=== PATIENT | male | born 1935 | race Caucasian/White ===

== ENCOUNTER → 2017-07-04 | Outpatient (CLI) | payer OTHER ==
[~2017-07-04] VITALS: Ht 177.8 cm; Wt 90.7 kg
[~2017-07-04] MED LIST: ACCUNEB SO1.25 MG/1 INH; ASPIR 8181 MG PO; COZAAR 50 MG TA50 M2 PO; FLONASE 0.05%50 MCG NASAL; FOCUS FACTOR PO; LIPITOR10 MG PO; NASACORT10.8 ML NS; NORVASC5 MG PO; OMEGA-31000 M1 PO; ONDANSETRON HCL4 M2 PO; PENTASA500 MG PO; PRILOSEC 10MG C10 MG PO
--- NOTE | ~2017-07-04 | S ---
[facility] [place] [address] SURGICAL PATH RPT PROCEDURE Name: JAMESON MICHAEL Room #: REG CLAyden Dai#: [id number] Admission: 07/04/17 Date of : 39 Discharge: Report #: [id number] Path Case #: [id number] PATHOLOGY REPORT COLLECTION DATE: 07/04/2017 RECEIVED DATE: 07/04/2017 SUBMITTING PHYS: Dr. Elkin Yancey OTHER PHYS: Dr. Steph Johnson SPECIMEN(S) RECEIVED: A.Duodenum B.Ascending colon polyp C.Transverse colon polyp D.Rectal polyps x2 * * * * * * * * * * * * FINAL DIAGNOSIS: A. Small bowel mucosa, duodenum rule out sprue, endoscopic biopsy: - No diagnostic abnormalities present. B. Polyp, ascending colon, endoscopic biopsy: - Tubular adenoma. - Negative for high grade dysplasia. C. Polyp, transverse colon, endoscopic biopsy: - Tubular adenoma. - Negative for high grade dysplasia. D. 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 - One fragment showing hyperplastic polyp without dysplasia. (IUV:song; 07/05/2017) PATHOLOGIST: Nanette Stone M.D. REPORT ELECTRONICALLY SIGNED BY: Nanette Stone M.D. DATE/TIME: 07/05/2017 14:56 * * * * * * * * * * * * GROSS PATHOLOGY: A. Received in formalin labeled "Jameson Kroenke, BX duodenum r/o sprue," are 2 segments of burger soft tissue measuring 0.8 x 0.3 x 0.4 cm in aggregate dimensions and ranging from 0.4 to 0.4 cm in maximum dimension. The specimen is submitted entirely in cassette A1. B. Received in formalin labeled "Jameson Michael, polyp at ascending colon," are 3 segments of burger soft tissue measuring 0.8 x 0.6 x 0.3 cm in aggregate dimensions and ranging from 0.2 to 0.4 cm in maximum dimension. The specimen is submitted entirely in cassette B1. C. Received in formalin labeled "Jameson Michael, polyp at [address] [address] SURGICAL PATH RPT PROCEDURE Name: JAMESON MICHAEL [facility] [id number] Admission: 07/04/17 Date of : 39 Discharge: Report #: [id number] Path Case #: [id number] colon," is a segment of burger soft tissue measuring 0.4 cm in maximum dimension. The specimen is submitted entirely in cassette C1. D. Received in formalin labeled "Jameson Michael, polyp at rectum 2," are multiple (more than 10) segments of burger soft tissue measuring 2.2 x 0.9 x 0.4 cm in aggregate dimensions and ranging from 0.1 to 0.5 cm in maximum dimension. The specimen is submitted entirely in cassette D1. (TSD; 07/04/2017) CLINICAL HISTORY: Pre-OP DX: Anemia, Hx Crohn's, Hx HEM positive stool Post-OP DX: Colon polyps, diverticulosis INITIAL CPT CODE(S): A; 11865 B; 79365 C; 37067 D; 46388 Professional services performed by [facility] at [facility] [address], [place] [address] Technical services performed by [facility] at [address] [place] [address], [address], [place] [address]. [facility] [address] [place] [address] PHONE: [phone] DIRECTOR: Rogelio Suarez M.D. * * * END OF REPORT * * *
--- NOTE | ~2017-07-04 | P ---
[facility] [place] [address] PROCEDURE REPORT Name: AMELIA MICHAEL Room #: REG [facility]#: [id number] Admission: 07/04/17 Attend Phys: Elkin Herrera Discharge: Date of : 37 Report #: [id number] THIS REPORT FOR: //name// CC: Elkin Johnson MD DATE OF SERVICE: 07/04/2017 PROCEDURE PERFORMED: Upper endoscopy with biopsies. HISTORY OF PRESENT ILLNESS: The patient is a 81-year-old male with a history of Crohn's disease involving the small-bowel identified on M2 capsule 2 years ago. He is on Pentasa on a regular basis. He does take an aspirin on a daily basis as well. Recently, he was evaluated by his primary physician and noted to have a Hemoccult positive stool. He denies any melena or bright red blood per rectum. He denies any symptoms at this time. He does take Prilosec on a daily basis for reflux. Plan is for EGD and colonoscopy today. The patient has been reportedly mildly anemic recently. PROCEDURE: The risks and benefits of the procedure were explained to the patient, those risks including, but not limited to bleeding, perforation, the risk of sedation. He understood these risks and gave informed consent. Sedation was given using propofol and ketamine per anesthesia. Next, using a standard Spinal Integrationinon upper endoscope, the scope was placed in the patient's mouth and advanced under direct vision through the esophagus, stomach and into the second portion of the duodenum. The esophagus was normal throughout. The GE junction was normal. Upon entering the stomach, a small hiatal hernia was noted. Overall, the gastric mucosa was normal. The pylorus was normal and patent. The duodenal bulb, first and second portion were all normal. Biopsies of the duodenum were obtained to rule out the possibility of celiac sprue. The scope was then withdrawn and the procedure terminated. The patient tolerated the procedure well. IMPRESSION: 1. Small hiatal hernia. 2. Otherwise, normal upper endoscopy. RECOMMENDATIONS: 1. Await biopsy results. 2. Continue PPI therapy. 3. We will proceed with colonoscopy next today. [facility] [address] [place] [address] PROCEDURE REPORT Name: AMELIA MICHAEL [facility]: [facility] [id number] Admission: 07/04/17 Attend Phys: Elkin Herrera Discharge: Date of : 37 Report #: [id number] Thank you for allowing me to participate in his care. By: [id number] Elkin Yancey MD /nt
--- NOTE | ~2017-07-04 | P ---
[facility] [place] [address] PROCEDURE REPORT Name: AMELIA MICHAEL Room #: REG [facility]#: [id number] Admission: 07/04/17 Attend Phys: Elkin Herrera Discharge: Date of : 37 Report #: [id number] THIS REPORT FOR: //name// CC: Elkin Johnson MD DATE OF SERVICE: 07/04/2017 PROCEDURE PERFORMED: Colonoscopy with polypectomies. HISTORY OF PRESENT ILLNESS: The patient is a 81-year-old male with a recent Hemoccult positive stool. He denies any obvious bright red blood per rectum or melena. He does have a history of Crohn's disease involving the small-bowel, previous history of colon polyps. Plan is for colonoscopy. PROCEDURE: The risks and benefits of the procedure were explained to the patient, those risks including, but not limited to bleeding, perforation, and the risk of sedation. He understood these risks and gave informed consent. Sedation was given using propofol per anesthesia. Next, a digital rectal exam was initially performed, which showed external hemorrhoids, otherwise normal. Next, using a standard Clerkinon colonoscope, the scope was placed in the patient's anus and advanced under direct vision to the cecum. The overall prep was excellent. The cecum and ileocecal valve were normal in appearance. In the ascending colon, there was a 4-mm sessile polyp, this was removed with cold forceps, otherwise normal. In the transverse colon, a 3-mm sessile polyp also removed with cold forceps. Descending colon was normal. Multiple diverticula were noted in the sigmoid colon, no evidence of bleeding. In the rectum, there were 2 polyps, smaller was 3 mm and removed with cold forceps, the larger was 6 mm and removed by snare cautery. On retroflexion, small nonbleeding internal hemorrhoids were noted. The scope was then withdrawn and the procedure terminated. The patient tolerated the procedure well. IMPRESSION: 1. Four colonic polyps. 2. Sigmoid diverticulosis. 3. Internal and external hemorrhoids. 4. Otherwise, normal colonoscopy. RECOMMENDATIONS: 1. Await biopsy results. 2. No stigmata of bleeding on EGD or colonoscopy today, we would continue current regimen. If the patient becomes more anemic in the future, could consider repeat M2 capsule. [address] [address] PROCEDURE REPORT Name: AMELIA MICHAEL Room #: REG TALHA Dai#: [id number] Admission: 07/04/17 Attend Phys: Elkin Herrera Discharge: Date of : 37 Report #: [id number] Thank you for allowing me to participate in his care. By: [id number] Elkin Yancey MD /nt
== END | disposition home or self-care (01) ==
LOC: GI 07:00
DX: D12.2 Benign neoplasm of ascending colon (principal); D12.3 Benign neoplasm of transverse colon; K57.30 Diverticulosis of large intestine without perforation or abscess without bleeding; D12.8 Benign neoplasm of rectum; K64.8 Other hemorrhoids; K64.4 Residual hemorrhoidal skin tags; K21.9 Gastro-esophageal reflux disease without esophagitis; D64.9 Anemia, unspecified; K44.9 Diaphragmatic hernia without obstruction or gangrene; Z87.891 Personal history of nicotine dependence; J45.909 Unspecified asthma, uncomplicated; I10 Essential (primary) hypertension; E78.5 Hyperlipidemia, unspecified; K50.90 Crohn's disease, unspecified, without complications
CPT/HCPCS: 62110; 62900

== ENCOUNTER 2018-11-21 08:58 | Inpatient (IN) | payer OTHER ==
[~2018-11-21] VITALS: Ht 177.8 cm; Wt 98.0 kg
--- NOTE | ~2018-11-21 | P ---
[facility] [place] [address] PROCEDURE REPORT Name: AMELIA MICHAEL Room #: 207-P [facility] IN M.R.#: [id number] Admission: 11/21/18 ������������������ Attend Phys: Nain Navarro MD Discharge: ������������������ Date of : 37 Report #: [id number] THIS REPORT FOR: //name// CC: Nain Johnson MD INPATIENT UPPER ENDOSCOPY REPORT BRIEF HISTORY: The patient is an 83-year-old male who presented to [facility] with atypical chest pain. His cardiac enzymes were negative. He does have reflux and takes 20 mg of omeprazole daily. He sleeps on a wedge. His burning symptoms are much better with the omeprazole, but he still feels regurgitation in spite of the omeprazole. PREOPERATIVE DIAGNOSES: Atypical chest pain and reflux disease. POSTOPERATIVE DIAGNOSES: 1. Moderate diffuse gastritis, nonerosive. 2. Intermittently seen 1-2 cm sliding-type hiatus hernia. MEDICATIONS: Deep sedation with propofol per anesthesia. SPECIMEN: Biopsies of gastritis. ESTIMATED BLOOD LOSS: 3 mL. PROCEDURE: EGD with biopsy. FINDINGS: Prior to propofol sedation, the procedure of upper endoscopy was discussed with the patient as well as potential risks and its complications. He indicates he understands and desires to proceed. DESCRIPTION OF PROCEDURE: With the patient in the left lateral decubitus position, the Olympus video endoscope was inserted in the cervical esophagus under direct vision without difficulty. Examination of this organ through its entire length revealed normal esophageal mucosa down the squamocolumnar junction. Squamocolumnar junction was inspected and noted to be unremarkable. The scope was advanced. Intermittently, a very small 1-2 cm sliding-type hiatus hernia was seen. Mucosa and hernia were unremarkable. The scope was advanced in the stomach, which was examined on end views as well as retroflexed views. There was moderate diffuse gastritis. There was mild diffuse erythema in the antrum. There was patchy erythema in the fundus and the body of the stomach. No ulcers were seen. No retained solids or liquids were seen. Upon retroflexion, no mass lesions were seen. A large hiatus hernia was not seen. The pylorus, duodenal bulb and postbulbar sweep were all inspected and noted to be unremarkable. At that point, the scope was slowly withdrawn and careful [facility] [address] [place] [address] PROCEDURE REPORT Name: AMELIA MICHAEL Room #: 207-P [facility] IN ..#: [id number] Admission: 11/21/18 ������������������ Attend Phys: Nain Navarro MD Discharge: ������������������ Date of : 39 Report #: [id number] circumferential views confirmed the above findings. The patient tolerated the procedure well. DISPOSITION: The patient with atypical chest pain. He clearly has reflux symptoms and still has regurgitation in spite of the Prilosec. At this point, we suggest he increase his PPI to 40 mg twice daily. I would do this on a trial basis for 2-3 months with regard to his reflux. If he does well over time, we may try to reduce to a lowest dose to control his symptoms. He does have gallstones. He will be seen by a surgeon for consultation with regards to his gallbladder disease. ��������������������������������������������� ���������������������������������������� By: ��������������������������������������������� [phone] Florencio Brooks MD /nt
[2018-11-21 08:58] VITALS: BP 97/46
[~2018-11-21 08:58] MED LIST changes: +COZAAR 50 MG TA50 M1 PO; -COZAAR 50 MG TA50 M2 PO
[2018-11-21] MEDS ORDERED: FLOMAX0.4 MG PO (09:09)
[2018-11-21] MEDS ORDERED: MAXZIDE-25 MG1 EACH PO (09:09)
[2018-11-21] MEDS ORDERED: PENTASA500 MG PO (09:10)
[2018-11-21 09:21] LABS: ABSOLUTE NEUTROPHILS 8.5 thou/uL (1.4-8.2); BASOPHILS 0.2 % (0.0-2.0); EOSINOPHILS 0.2 % (0.0-3.0); HEMATOCRIT 42.1 % (42.0-52.0); LYMPHOCYTES 6.6 % (24.0-44.0); MCH 28.2 pg (26.0-34.0); MCHC 33.2 g/dL (28.0-37.0); MCV 84.9 fL (80.0-100.0); MONOCYTES 3.4 % (1.0-8.0); PLATELET COUNT 192 thou/uL (150-400); POLYS 89.6 % (36.0-66.0); RBC 4.96 mil/uL (4.50-6.00); RDW 13.8 % (10.5-14.5); WBC 9.5 thou/uL (4.0-11.0)
[2018-11-21 09:33] LABS: ALBUMIN 3.5 g/dL (3.4-5.0); ANION GAP 11 mmol/L (7-16); BUN 23 mg/dL (7-18); CALCIUM 8.6 mg/dL (8.5-10.1); CHLORIDE 101 mmol/L (98-107); CO2 27 mmol/L (21-32); GLUCOSE 159 mg/dL (74-106); SGOT 20 U/L (15-37); SGPT 23 U/L (30-65); SODIUM 139 mmol/L (136-145); TOTAL BILIRUBIN 0.3 mg/dL (<0.1-1.0); TOTAL PROTEIN 7.3 g/dL (6.4-8.2); TROPONIN-I <0.06 ng/mL (<0.06)
[2018-11-21 09:38] LABS: CREATININE 1.5 mg/dL (0.7-1.3)
[2018-11-21] MEDS ORDERED: LIPITOR10 MG PO (09:41)
[2018-11-21 09:58] LABS: POC CA IONIZED 4.1 mg/dL (4.5-5.3); POC HEMOGLOBIN 10.5 g/dL (14.0-18.0); POC POTASSIUM 3.3 mmol/L (3.5-5.1)
[2018-11-21 12:10] VITALS: BP 123/67
[2018-11-21 13:25] VITALS: BP 123/65
--- NOTE | 2018-11-21 15:21 | 2DMMODE ---
[facility] [address] [place] [address] 2 D/M-MODE ECHOCARDIOGRAM Name: AMELIA MICHAEL Room #: 207-P [facility] IN .R.#: [id number] ������������� Admission: 11/21/18 ������������� Attend Phys: Nain Navarro MD Discharge: ��� ������������� ��� Date of : 39 Date of Service: 11/21/18 1521 �� Report #: [id number] �������� ��������������������������������������������[id number] THIS REPORT FOR: //name// APPROVED REPORT Study performed: 11/21/2018 13:41:52 EXAM: Comprehensive 2D, Doppler, and color-flow Echocardiogram Patient Location: Bedside Room #: 207 Status: routine BSA: 2.09 HR: 56 bpm BP: 123/67 mmHg Rhythm: Bradycardia Other Information Study Quality: Good Indications Bradycardia Chest Pain Hypertension/HDD 2D Dimensions RVDd: 34.87 mm IVSd: 8.33 (7-11mm) LVOT Diam: 21.42 (18-24mm) LVDd: 50.48 mm PWd: 7.63 (7-11mm) Ascending Ao: 36.58 (22-36mm) LVDs: 35.95 (25-40mm) Aortic Root: 36.66 mm IVC: 20.00 mm Volumes Left Atrial Volume (Systole) Single Plane 4CH: 68.09 mL Single Plane 2CH: 54.85 mL LA ESV Index: 31.00 mL/m2 Aortic Valve AoV Peak Agusto.: 1.29 m/s AO Peak Gr.: 6.67 mmHg LVOT Max P.60 mmHg LVOT Max V: 0.95 m/s JACK Vmax: 2.65 cm2 AI Vmax: 3.80 m/s AI [place]: 1.48 m/s2 AI PHT: 745.[address] [facility] [place] [address] 2 D/M-MODE ECHOCARDIOGRAM Name: AMELIA MICHAEL Room #: 207-P [facility] IN ..#: [id number] ������������� Admission: 11/21/18 ������������� Attend Phys: Nain Navarro MD Discharge: ��� ������������� ��� Date of : 39 Date of Service: 11/21/18 1521 �� Report #: [id number] �������� ��������������������������������������������[id number] Mitral Valve E/A Ratio: 0.9 MV Decel. Time: 244.75 ms MV E Max Agusto.: 0.95 m/s MV A Agusto.: 1.11 m/s MV PHT: 70.98 ms IVRT: 110.73 ms Pulmonary Valve PV Peak Agusto.: 0.85 m/s PV Peak Gr.: 2.86 mmHg Pulmonary Vein P Vein S: 0.66 m/s P Vein A: 0.27 m/s P Vein D: 0.54 m/s P Vein A Dur.: 138.4 msec P Vein S/D Ratio: 1.22 Tricuspid Valve TR Peak Agusto.: 2.52 m/s TR Peak Gr.: 25.33 mmHg PA Pressure: 35.00 mmHg Left Ventricle The left ventricle is normal size. There is normal left ventricular wall thickness. The left ventricular systolic function is normal. The left ventricular ejection fraction is within the normal range. LVEF is 55-60%. Grade I - abnormal relaxation pattern. Right Ventricle The right ventricle is normal size. The right ventricular systolic function is normal. Atria The left atrium size is normal. Right atrium is dilated. Aortic Valve The aortic valve is normal in structure. Mild aortic regurgitation. There is no aortic valvular stenosis. Mitral Valve The mitral valve is normal in structure. Trace mitral regurgitation. No evidence of mitral valve stenosis. Tricuspid Valve The tricuspid valve is normal in structure. There is trace tricuspid regurgitation. Estimated PAP 35 mmHg. There is mild pulmonary [address] [place] [address] 2 D/M-MODE ECHOCARDIOGRAM Name: ALECAMELIA Room #: 207-P [facility] IN [facility]#: [id number] ������������� Admission: 11/21/18 ������������� Attend Phys: Nain Navarro MD Discharge: ��� ������������� ��� Date of : 39 Date of Service: 11/21/18 1521 �� Report #: [id number] �������� ��������������������������������������������[id number] hypertension. Pulmonic Valve The pulmonary valve is normal in structure. Trace pulmonic regurgitation. Great Vessels The aortic root is normal in size. IVC is dilated and collapses >50% with inspiration. Pericardium There is no pericardial effusion. <Conclusion> The left ventricle is normal size. There is normal left ventricular wall thickness. The left ventricular systolic function is normal. Grade I - abnormal relaxation pattern. The right ventricle is normal size. The left atrium size is normal. Mild aortic regurgitation. Trace mitral regurgitation. There is trace tricuspid regurgitation. Estimated PAP 35 mmHg. ��������������������������������������������� <ELECTRONICALLY SIGNED> ���������������������������������������� By: Pernell Mills MD ��������������������������������������������� 11/21/18 [phone] Pernell Mills MD /INF
--- NOTE | 2018-11-21 16:00 | NUR ---
PT ADMITTED TO ED TODAY AFTER REPORTING WAKING UP DURING NIGHT WITH CHEST PAIN THAT RADIATES TO BACK. HE WAS IN BATHROOM AT HOME AND REPORTS HE FELL..NO INJURIES NOTED..REPORTS CHEST PAIN 3/10 DULL CONSTANT AND NITRO X 1 RELIEVED PAIN TO A 1/10...ALSO GI COCKTAIL HELPED PATIENT WHO ALSO HAD NAUSEA...TUNDE PARKER
[2018-11-21 17:10] VITALS: BP 135/58
[2018-11-21 19:45] VITALS: BP 124/55
--- NOTE | 2018-11-21 23:03 | NUR ---
AOX4. DENIES SOA ON ROOM AIR. CLEAR LUNG SOUNDS. SR W/ 1DAVB ON THE MONITOR. STILL WITH COMPLAINT OF DULL CONSTANCT CHEST PAIN RADIATING TO THE BACK, 2/10, RELIEVED WITH NITROGLYCERIN SL. PATIENT INSTRUCTED ON NPO STARTING MIDNIGHT FOR THE EGD IN THE MORNING. PATIENT SAID THAT HE WILL SIGN THE CONSENT IN THE MORNING. ALSO, FOR NM HEPATOBILIARY PIPIDA, NO NARCOTICS GIVEN PREPARATION FOR THE PROCEDURE. SCD ON. PATIENT ABLE TO VOID W/ BRP, ON STANDBY ASSIST. MAINTAINED ON FALL PRECAUTION. IV ON THE LEFT AC WITH ONGOING NSS AT 125 ML/HOUR AND ONGOING POTASSIUM DRIP (2ND BAG) AT 20 ML/HR. FF UP POC.
[2018-11-22 00:05] VITALS: BP 132/58
[2018-11-22 03:58] VITALS: BP 119/55
[2018-11-22 04:12] LABS: GLYCOHEMOGLOBIN (HGB A1C) 5.9 % (4.8-5.6)
[2018-11-22 05:33] LABS: ABSOLUTE NEUTROPHILS 8.2 thou/uL (1.4-8.2); BASOPHILS 0.2 % (0.0-2.0); EOSINOPHILS 0.4 % (0.0-3.0); HEMATOCRIT 37.3 % (42.0-52.0); HEMOGLOBIN 12.2 gm/dL (14.0-18.0); LYMPHOCYTES 7.9 % (24.0-44.0); MCHC 32.8 g/dL (28.0-37.0); MCV 85.1 fL (80.0-100.0); PLATELET COUNT 178 thou/uL (150-400); POLYS 82.5 % (36.0-66.0); RBC 4.38 mil/uL (4.50-6.00); RDW 13.5 % (10.5-14.5); WBC 9.9 thou/uL (4.0-11.0)
[2018-11-22 05:56] LABS: ALBUMIN 2.8 g/dL (3.4-5.0); ANION GAP 9 mmol/L (7-16); BUN 16 mg/dL (7-18); CALCIUM 8.3 mg/dL (8.5-10.1); CHLORIDE 104 mmol/L (98-107); CHOLESTEROL 79 mg/dL (<200); CO2 26 mmol/L (21-32); CREATININE 1.1 mg/dL (0.7-1.3); DIRECT BILIRUBIN < 0.1 mg/dL (<0.1-0.3); GLUCOSE 110 mg/dL (74-106); HDL CHOLESTEROL 28 mg/dL (>40); LDL CHOLESTEROL 36 mg/dL (<100); LIPASE 56 U/L (73-393); MAGNESIUM 1.7 mg/dL (1.8-2.4); POTASSIUM 3.9 mmol/L (3.5-5.1); SGOT 13 U/L (15-37); SGPT 17 U/L (30-65); SODIUM 139 mmol/L (136-145); TC:HDL 2.8 Ratio (Not establshd); TOTAL BILIRUBIN 0.3 mg/dL (<0.1-1.0); TOTAL PROTEIN 5.9 g/dL (6.4-8.2); TRIGLYCERIDE 79 mg/dL (<150); VLDL 16 mg/dL (<40)
[2018-11-22 07:45] VITALS: BP 119/59
--- NOTE | 2018-11-22 07:55 | HC ---
[facility] [place] [address] CONSULTATION Name: AMELIA MICHAEL Room #: 207-P [facility] IN M.R.#: [id number] Admission: 11/21/18 ������������������ Attend Phys: Nain Navarro MD Discharge: ������������������ Date of : 37 Report #: [id number] THIS REPORT FOR: //name// CC: Nain Johnson DATE OF SERVICE: 11/21/2018 INDICATION: Chest pain. HISTORY OF PRESENT ILLNESS: This is an 83-year-old gentleman with a history of hypertension, hypercholesterolemia, Crohn's disease and edema, presenting with chest pain and syncope. The patient woke up this morning around 4:30, sat at the edge of the bed. He is unsure if he had any chest pain at that time. As he stood up to go to the bathroom, he had a near syncopal event. He fell to the ground and then realized he had pain in his left lower chest area, nonradiating. He felt diaphoretic at this time. The pain persisted for several hours and he decided to come to the ER for an evaluation. He was initially found to be hypotensive, improved with fluids. He did have some dry heaves, but denies any shortness of breath, palpitations, vomiting or diarrhea. There is no history of PND or orthopnea. PAST MEDICAL HISTORY: Hypertension, hypercholesterolemia, Crohn's disease, GERD and edema. ALLERGIES: Include PREDNISONE AND SULFA. MEDICATIONS AT HOME: Include amlodipine 5 mg, aspirin once a day, Lipitor 10 mg, losartan 100 mg, Pentasa for Crohn's disease, omeprazole, Flomax, Dyazide. Stress test from 09/2017 is nonischemic. SOCIAL HISTORY: Denies tobacco use. FAMILY HISTORY: Negative for premature CAD. REVIEW OF SYSTEMS: A full 10-point review of systems performed. Only the pertinent positives and negatives are described in the HPI. PHYSICAL EXAMINATION: VITAL SIGNS: Blood pressure is 97/50, heart rate is 96 beats per minute. GENERAL APPEARANCE: An elderly appearing male in no acute distress. HEENT: Normocephalic, atraumatic. Oral mucosa moist. NECK: Supple. LUNGS: Slightly diminished at the breath sounds. CARDIAC: Regular rate and rhythm, S1, S2 positive. [facility] [address] [place] [address] CONSULTATION Name: AMELIA MICHAEL Room #: 207-P [facility] IN ..#: [id number] Admission: 11/21/18 ������������������ Attend Phys: Nain Navarro MD Discharge: ������������������ Date of : 39 Report #: [id number] ABDOMEN: Soft, nontender. EXTREMITIES: No cyanosis, positive ankle edema bilaterally. NEUROLOGIC: Alert and oriented x 3 ECG reveals sinus rhythm, PVCs. LABORATORY VALUES: Sodium is 143, creatinine is 1.5 and then 1.0. White count is 9.5, hemoglobin 14.0. Troponin is negative. A CT scan is negative for PE or aortic dissection. ASSESSMENT AND PLAN: 1. Chest pain syndrome, the ECG is unremarkable and the initial troponin level was negative. He has left-sided discomfort for the past 6 hours, little bit improved when he sits up. I do not believe this is ischemia related. More likely related to a GI or musculoskeletal etiology. Continue checking serial troponin levels. Would give GI medications for now. 2. Syncope/orthostatic lightheadedness. May be related to dehydration, he has not been adequately consuming liquids. Hold all blood pressure medications for now, his blood pressure is on the low side. We have given him some gentle hydration. Monitor overnight. 3. If repeat hypotension, as above, hold all medications. 4. Hypercholesterolemia, continue with statin therapy. 5. Ulcerative colitis, continue with meds. ��������������������������������������������� <ELECTRONICALLY SIGNED> ���������������������������������������� By: Perenll Mills MD ��������������������������������������������� 11/22/18 0755 [id number] Pernell Mills MD /nt
--- NOTE | 2018-11-22 10:39 | EKG ---
[place] [address] [facility] [place] [address] ELECTROCARDIOGRAM REPORT Name: AMELIA MICHAEL Room #: 207-P ADM IN M.R.#: [id number] ������������������ Admission: 11/21/18 ������������������ Attend Phys: Nain Navarro MD Discharge: ������������������ Date of : 39 Report #: [id number] ����������������������������������������������������������������� [id number] THIS REPORT FOR: //name// [facility] ED Test Date: 2018-11-21 Test Time: 09:01:58 Pat Name: AMELIA MICHAEL Department: Room: 207 Gender: M Consultant Teacher: : 1935 Requested By: Kate El Order Number: [id number] MD: Tomasz Aldridge Measurements Intervals [place] Rate: 52 P: 17 AK: 241 QRS: 19 QRSD: 110 T: 49 QT: 471 QTc: 438 Interpretive Statements Sinus rhythm Prolonged AK interval early transition Compared to ECG 10/22/2000 17:28:19 First degree AV block now present Electronically Signed On 11-22-2018 10:39:35 BELT BRANDER by Tomasz Aldridge [email or web address] ��������������������������������������������� <ELECTRONICALLY SIGNED> ���������������������������������������� By: Tomasz Aldridge MD ��������������������������������������������� 11/22/18 1039 0 0 Tomasz Aldridge MD /EPI
[2018-11-22 11:15] VITALS: BP 124/54
[2018-11-22 15:25] VITALS: BP 132/65
--- NOTE | 2018-11-22 18:12 | NUR ---
ASSUMED CARE AT [facility] CHANGE. PT A/O X 4, CALM PLESANT. EGD AND PIPPIDA SCAN COMPLETE TODAY. STILL RATES CP AT 1/10 ON PAIN SCALE, CONSTANT, WITH NO CHANGES THROUGHOUT THE SHIFT. DENIES N/V, DIZZINESS. STEADY ON FEET WITH SBA. WAS SOB WITH WALKING TO BATHROOM TODAY, BUT STATES THIS IS CHRONIC. LABS NOTED. VSS. WILL CONT TO MONITOR AND FOLLOW POC.
[2018-11-22 19:34] VITALS: BP 140/59
[2018-11-23 04:25] VITALS: BP 121/50
[2018-11-23 04:42] LABS: HEMOGLOBIN 11.9 gm/dL (14.0-18.0); MCH 28.2 pg (26.0-34.0); MCV 85.5 fL (80.0-100.0); RBC 4.22 mil/uL (4.50-6.00); RDW 13.5 % (10.5-14.5); WBC 9.6 thou/uL (4.0-11.0)
[2018-11-23 04:57] LABS: CALCIUM 7.9 mg/dL (8.5-10.1); CREATININE 1.2 mg/dL (0.7-1.3); POTASSIUM 3.6 mmol/L (3.5-5.1)
--- NOTE | 2018-11-23 05:03 | NUR ---
AOX4, STILL WITH CONSTANT PAIN ON THE CHEST 10/03
[2018-11-23 07:53] VITALS: BP 107/45
[2018-11-23 11:55] VITALS: BP 104/55
[2018-11-23 16:40] VITALS: BP 113/55
--- NOTE | 2018-11-23 17:29 | NUR ---
ASSUMED CARE AT [facility] CHANGE. ASSESSMENTS PER NOV. PT DENIES N/V THROUGHOUT SHIFT. CLEAR LIQ DIET ORDERS RECEIVED FROM DR CROSS THIS AM WHEN RN CALLED ABOUT POC. DR CROSS ROUNDED THIS EVENING AND ADVANCED DIET TO FULL LIQUIDS. WILL CONT IV ATB, NO PLAN FOR DRAIN OR SURGICAL INTERVENTION AT THIS TIME PER [place]. PT UP WITH SBA IN ROOM, STEADY GAIT. LABS NOTED. VSS. SPOUSE AT BEDSIDE MOST OF THE DAY. WILL CONT TO MONITOR AND FOLLOW POC.
[2018-11-23 19:40] VITALS: BP 127/52
[2018-11-24 04:40] VITALS: BP 113/69
[2018-11-24 06:20] LABS: HEMATOCRIT 37.1 % (42.0-52.0); HEMOGLOBIN 12.3 gm/dL (14.0-18.0); MCH 28.4 pg (26.0-34.0); MCHC 33.2 g/dL (28.0-37.0); MCV 85.4 fL (80.0-100.0); RBC 4.35 mil/uL (4.50-6.00); RDW 13.7 % (10.5-14.5); WBC 7.7 thou/uL (4.0-11.0)
[2018-11-24 06:33] LABS: CREATININE 1.2 mg/dL (0.7-1.3); POTASSIUM 3.4 mmol/L (3.5-5.1)
[2018-11-24 07:40] VITALS: BP 123/55
--- NOTE | 2018-11-24 07:47 | NUR ---
PT. AOX4; C/O EPIGASTRIC PAIN; NO PRN PAIN MEDICATION; ABLE TO REST MOST OF THE NIGHT; NO N/V; EDUCATED ABOUT FALL PREVENTION; ST. UNDERSTANDING; NO CALLS TO STAND UP FROM BED TO RESTROO; ST. NO USE OF DEVICES AT HOME TO WALK; ASSESSMENT CHARGED; FOLLOWING POC; PASSED ON REPORT.
[2018-11-24 11:25] VITALS: BP 131/82
[2018-11-24 15:25] VITALS: BP 121/75
--- NOTE | 2018-11-24 19:34 | NUR ---
ASSUMED PATIENT CARE THIS AM. PATIENT A&OX4, ROOM AIR. UP STEADY GAIT IN ROOM. TOLERATING FULL LIQUID DIET. NO COMPLAINTS OF PAIN FOR THIS RN. AT BEDSIDE. POSSIBLE DISCHARGE HOME TOMORROW PER PATIENT
[2018-11-24 20:03] VITALS: BP 126/67
--- NOTE | 2018-11-25 01:59 | NUR ---
ASSESSMENTS CHARTED. PATIENT RESTING EASILY DURING SHIFT. UP AT MILADY TO BATHROOM. PLAN OF CARE IS TO GO HOME ON FULL LIQUIDS IN THE MORNING. MEET WITH DIETITIANS BEFORE LEAVING TO DISCUSS FULL LIQUID DIET.
[2018-11-25 05:14] VITALS: BP 110/62
[2018-11-25 07:30] VITALS: BP 119/44
[2018-11-25 12:00] VITALS: BP 122/58
[2018-11-25 16:00] VITALS: BP 134/70
--- NOTE | 2018-11-25 19:48 | NUR ---
REPORT RECIEVED AT 0720 AND CARE ASSUMED. ORIENTED X 4, NO COMPLAINTS OF PAIN OR NAUSEA. UP AD MILADY, GAIT STEADY. RA. FULL LIQUID DIET, TOLERATING WELL. WHEN ON PO ANTIBIOTICS MAY BE ABLE TO GO HOME AND RETURN FOR CHOLI WHEN APPROPRIATE. VITALS WNL
[2018-11-25 19:56] VITALS: BP 134/74
--- NOTE | 2018-11-26 03:00 | NUR ---
ASSESSMENTS CHARTED. CONTINUED WITH ANTIBIOTIC THERAPY. PLAN IS FOR PATIENT TO RETURN HOME TODAY ON FULL LIQUID DIET AFTER MEETING WITH DIETITIAN AND GETTING OK FROM SURGEON FOR DISCHARGE.
[2018-11-26 03:57] VITALS: BP 145/65
[2018-11-26 04:28] LABS: HEMATOCRIT 34.1 % (42.0-52.0); HEMOGLOBIN 11.4 gm/dL (14.0-18.0); MCH 28.2 pg (26.0-34.0); MCHC 33.5 g/dL (28.0-37.0); MCV 84.1 fL (80.0-100.0); RBC 4.06 mil/uL (4.50-6.00); RDW 13.9 % (10.5-14.5); WBC 5.6 thou/uL (4.0-11.0)
[2018-11-26 04:37] LABS: CALCIUM 8.2 mg/dL (8.5-10.1); CREATININE 1.1 mg/dL (0.7-1.3); POTASSIUM 3.7 mmol/L (3.5-5.1)
[2018-11-26 07:30] VITALS: BP 136/65
[2018-11-26] MEDS ORDERED: AUGMENTIN 875-1 EACH PO (08:39)
[2018-11-26] MEDS ORDERED: FLAGYL500 M1 PO (08:42)
[2018-11-26 10:57] VITALS: BP 136/65
--- NOTE | 2018-11-26 11:07 | PATH ---
[facility] [address] [place] [address] PATHOLOGY RPT PROCEDURE Name: MONSTERMarissaBETOJAQUAN Room #: 207-P ADM IN M.R.#: [id number] ������������������ Admission: 11/21/18 ������������������ Date of : 37 Discharge: Report #: [id number] Path Case #: [id number] [facility] Accession Number: [id number] . 01 Material submitted: . GASTRITIS BIOPSY R/O H PYLORI . 01 Clinical history: . Pre-OP DX: Noncardiac chest pain Post-OP DX: Gastritis, hiatal hernia . 02 Diagnosis: Gastric mucosa, gastritis R/O H. pylori, endoscopic biopsy: - Mild chronic inflammation with features of reactive gastropathy. - Negative for intestinal metaplasia or atrophy. - Negative for Helicobacter pylori (properly controlled immunohistochemical stain performed). (IUV:john; 11/25/2018) QMS/11/25/2018 . 02 Electronically signed: . Nanette Stone MD, Pathologist NPI- [id number] . 01 Gross description: . Received in formalin labeled "Jameson Sosa, gastritis, rule out H. pylori," are 5 segments of burger soft tissue measuring 0.9 x 0.9 x 0.2 cm in aggregate dimensions and ranging from 0.2 to 0.5 cm in maximum dimension. The specimen is submitted entirely in cassette A1. (TSD; 11/22/2018) TOB/TOB . 02 Pathologist provided ICD-10: K29.50, K31.9 . 02 CPT . 973774, A89841 Specimen Comment: A courtesy copy of this report has been sent to Specimen Comment: [phone], , . Specimen Comment: Report sent to ,DR SU / DR CAI Specimen Comment: A duplicate report has been generated due to demographic updates. Performed at: [address] [facility] [address] [id number] MD Néstor Lowe MD Phone: [phone] Performed at: 02 [place] [address] PATHOLOGY RPT PROCEDURE Name: ALECJAQUAN Room #: 207-P ADM IN M.R.#: [id number] ������������������ Admission: 11/21/18 ������������������ Date of : 37 Discharge: Report #: [id number] Path Case #: [id number] [facility] [address], [place], [place] [id number] MD Nanette Stone MD Phone: [phone]
[2018-11-26] MEDS ORDERED: PROTONIX40 M1 PO (11:21)
--- NOTE | 2018-11-26 11:30 | NUR ---
ASSUMED PATIENT CARE THIS AM. PATIENT LYING IN BED, A&O. ROOM AIR. UP AD MILADY. NO N/V, N/T OR PAIN STATED FOR THIS RN. TOLERATING DIET. AIRPORT ELECTRICIAN AT BEDSIDE THIS AM FOR DIET EDUCATION FOR DISCHARGE. PLAN TO DISCHARGE PATIENT HOME WITH FOLLOW UP APPOINTMENT. SCRIPTS GIVEN TO PATIENT WITH EDUCATION MATERIAL.
== END 2018-11-26 14:16 | disposition home or self-care (01) | DRG 444 ==
LOC: ER 08:58 → 2N 11:47 → EROBS 11:47 → 2N 13:05 → ENTRNSPT 11-26 13:56 → EDTRNSPTSTS 11-26 14:14 → 2N 11-26 14:16
PROVIDERS: Nurse Practitioner; Student in an Organized Health Care Education/Training Program; ADMIT Hospitalist
PROC: 0DB68ZX Excision of Stomach, Via Natural or Artificial Opening Endoscopic, Diagnostic (ICD-10-PCS; principal; 2018-11-21)
DX: K80.00 Calculus of gallbladder with acute cholecystitis without obstruction (principal); E43 Unspecified severe protein-calorie malnutrition; K51.90 Ulcerative colitis, unspecified, without complications; K29.70 Gastritis, unspecified, without bleeding; I44.0 Atrioventricular block, first degree; K21.9 Gastro-esophageal reflux disease without esophagitis; I10 Essential (primary) hypertension; J45.909 Unspecified asthma, uncomplicated; E78.5 Hyperlipidemia, unspecified; R00.1 Bradycardia, unspecified; E87.6 Hypokalemia; K44.9 Diaphragmatic hernia without obstruction or gangrene; E78.00 Pure hypercholesterolemia, unspecified; I95.9 Hypotension, unspecified; D64.9 Anemia, unspecified; K31.9 Disease of stomach and duodenum, unspecified; Z87.442 Personal history of urinary calculi; Z98.42 Cataract extraction status, left eye; Z98.41 Cataract extraction status, right eye; Z88.2 Allergy status to sulfonamides; Z88.8 Allergy status to other drugs, medicaments and biological substances; Z87.891 Personal history of nicotine dependence; Z79.82 Long term (current) use of aspirin; Z79.899 Other long term (current) drug therapy
CPT/HCPCS: 10081; 10194; 62110; 62900

== ENCOUNTER 2019-02-07 05:34 | Day surgery (SDC) | payer OTHER ==
[~2019-02-07] VITALS: Ht 177.8 cm; Wt 83.5 kg
[~2019-02-07 05:34] MED LIST changes: +AUGMENTIN 875-1 EACH PO; +FLAGYL500 M1 PO; +FLOMAX0.4 MG PO; +MAXZIDE-25 MG1 EACH PO; +OMEPRAZOLE20 M2 PO; +PROTONIX40 M1 PO; +VENTOLIN HFA 1818 GM INH
[2019-02-07 10:41] LABS: CALCIUM 9.4 mg/dL (8.5-10.1); CREATININE 1.3 mg/dL (0.7-1.3); POTASSIUM 4.3 mmol/L (3.5-5.1)
[2019-02-07 13:32] VITALS: BP 116/73
[2019-02-07] MEDS ORDERED: NORCO 5-325 TA1 EACH PO (13:47)
[2019-02-07] MEDS ORDERED: SENOKOT-S TABL1 EACH PO (13:47)
[2019-02-07 14:21] VITALS: BP 116/73
--- NOTE | 2019-02-11 17:06 | PATH ---
[facility] [address] [place] [address] PATHOLOGY RPT PROCEDURE Name: AMELIA MICHAEL Room #: DEP [facility] M.R.#: [id number] ������������������ Admission: 02/07/19 ������������������ Date of : 37 Discharge: 02/07/19 Report #: [id number] Path Case #: [id number] [facility] Accession Number: [id number] . 01 Material submitted: . gallbladder - GALLBLADDER . 01 Clinical history: . Cholelithiasis . 02 Diagnosis: Gallbladder, cholecystectomy: - Moderate acute and chronic cholecystitis associated with hemorrhage as well as ulceration. - Cholelithiasis. (IUV/db; 02/11/2019) LBQ/02/11/2019 . 02 Electronically signed: . Nanette Stone MD, Pathologist NPI- [id number] . 01 Gross description: . The specimen is received in formalin, labeled "jen Avitia". Received is a previously opened gallbladder measuring 7.9 x 3.3 x 2.4 cm in greatest dimensions displaying a pink-guzmán and shaggy serosal surface. Opening the specimen reveals pale burger to light brown, honeycomb mucosa with a gallbladder wall thickness of 0.1 cm. Calculi are present displaying a light brown multifaceted appearance, and no masses or lesions are noted grossly. [employer] sections, to include the proximal margin, are submitted in cassette A1. (CAA; 02/10/2019) QAC/QAC . 02 Pathologist provided ICD-10: K80.12, K82.8 . 02 CPT . 604861 Specimen Comment: A courtesy copy of this report has been sent to Specimen Comment: [phone], . Specimen Comment: Report sent to / DR SU Performed at: [address] [id number] MD Néstor Lowe MD Phone: [phone] Performed at: [address] [address] PATHOLOGY RPT PROCEDURE Name: ALECAMELIAJAQUAN Room #: DEP [facility] M.R.#: [id number] ������������������ Admission: 02/07/19 ������������������ Date of : 37 Discharge: 02/07/19 Report #: [id number] Path Case #: [id number] [facility] [address] [id number] MD Nanette Stone MD Phone: [phone]
--- NOTE | 2019-02-12 17:17 | O ---
[facility] [place] [address] OPERATIVE REPORT Name: AMELIA MICHAEL Room #: DEP [facility]..#: [id number] Admission: 02/07/19 ������������������ Attend Phys: Alejo Stephenson MD, Discharge: 02/07/19 ������������������ Date of : 37 Report #: [id number] THIS REPORT FOR: //name// CC: Steph Stephenson DATE OF SERVICE: 02/07/2019 PREOPERATIVE DIAGNOSIS: Chronic cholecystitis. POSTOPERATIVE DIAGNOSIS: Wehxx-dp-rxmjnff cholecystitis. PROCEDURE PERFORMED: Laparoscopic cholecystectomy with intraoperative cholangiogram. SURGEON: Alejo Stephenson M.D. ASSISTANT BROKER: Medical student. ANESTHESIA: General endotracheal anesthesia. ESTIMATED BLOOD LOSS: Minimal (less than 5 mL). COMPLICATIONS: None appreciated. SPECIMENS: Gallbladder to pathology. INDICATIONS: The patient is an 83-year-old male who was seen while hospitalized several weeks ago with severe acute cholecystitis; however, he was outside of the safe 72-hour window to proceed with emergent surgical intervention and his symptoms subsided with antibiotic therapy. The patient has done well since that time and now that he has completed a course of antibiotics, indication was for interval cholecystectomy today. DESCRIPTION OF PROCEDURE: After explaining the risks, benefits and alternatives of the procedure with the patient in detail in the preoperative holding area and obtaining written consent, the patient was brought to the operating room and placed supine on the operating room table. After conducting a thorough timeout procedure verifying correct patient and procedure, the patient was given general endotracheal anesthesia. Once adequate anesthesia was obtained, his SCDs were hooked up to pneumatic compression device. He was given a preoperative dose of antibiotics in line with the SCIP protocol. The patient's abdomen was prepped and draped in standard surgical sterile fashion, 5 mL of 0.5% Marcaine with epinephrine were used to anesthetize the skin in the supraumbilical location. A #15 bladed scalpel was used to create a 1 cm transverse skin incision at this location. An 11 mm Visiport was placed over 0 degree 5 mm laparoscope and was [address] [address] OPERATIVE REPORT Name: AMELIA MICHAEL Room #: [facility]P [facility] M.R.#: [id number] Admission: 02/07/19 ������������������ Attend Phys: Alejo Stephenson MD, Discharge: 02/07/19 ������������������ Date of : 37 Report #: [id number] introduced through this incision site. Once intra-abdominal placement was verified visually, the obturator for the trocar and laparoscope were both removed and the abdomen was insufflated to 15 mmHg using carbon dioxide gas. The laparoscope was changed to a 5-mm 30-degree laparoscope, which was reintroduced through this trocar. The entire abdomen was evaluated to ensure no injury upon entry. The patient was now placed in steep reverse Trendelenburg position with right side elevated and I proceeded to place three additional 5 mm ports in the upper abdomen. One was placed in subxiphoid location and two were placed along the patient's right subcostal margin. All three additional ports were placed under direct vision after anesthetizing the skin at each location with 5 mL of 0.5% Marcaine with epinephrine and I had created small skin nicks using a #15 bladed scalpel. Using the inferolateral most port along the patient's right flank, the fundus of the gallbladder was grasped and retracted cephalad. Careful tedious dissection was undertaken down around the cholecystocystic junction using combination of Harmonic scalpel and [place] dissector. Once I had attained a critical view, namely the cystic duct emanating from the infundibulum of the gallbladder and coursing the common bile duct as well as cystic artery running the surface of the gallbladder and I created a window by each, I transected the cystic artery nearest to the gallbladder side using Harmonic scalpel for hemostasis. A single clip was now placed along the cystic duct nearest to the gallbladder side and a small ductotomy was made using EndoShears. This ductotomy was cannulated using the taut cholangiocatheter setup and an intraoperative cholangiogram was obtained. We had prompt opacification of the cystic duct with both intra and extrahepatic bile ducts becoming opacified. There was antegrade flow of contrast into the duodenum with no evidence of filling defects or obstruction. The cholangiocatheter setup was removed. Three clips were placed along the cystic duct nearest to the common bile duct side and it was transected above these using Harmonic scalpel to help seal the end of the duct closed. Further retraction at the infundibulum of the gallbladder in cephalad direction allowed me to elevate the gallbladder off the liver bed using combination of Harmonic scalpel and hook electrocautery. Once completely detached, the laparoscope was removed, changed to the right midclavicular 5 mm port and the EndoCatch bag was placed in supraumbilical trocar. The specimen was placed within the retrieval bag, the pursestring suture was drawn and specimen was removed from the abdomen under direct vision after extending the incision slightly to accommodate the bulky specimen. I then placed a [id number]-pm-uplua fascial closing suture around the supraumbilical fascial incision using 0 PDS suture on the Romulo-Franco suture passer device and tagged with hemostat and replaced trocar under direct vision. The laparoscope was replaced back to the supraumbilical trocar and the gallbladder fossa was evaluated. Hemostasis was assured with electrocautery. The abdomen was fully irrigated and suctioned dry. I did elect to place Dwaine in the bed of the gallbladder fossa for assistance with long-term hemostasis. As there was no further evidence of pathology, the abdomen was fully desufflated. All trocars removed under direct vision. The 0 PDS suture was tied down. 4-0 Monocryl was used in a standard subcuticular fashion for all [facility] [address] [place] [address] OPERATIVE REPORT Name: MONSTERAMELIA VAZQUEZ Room #: DEP [facility]..#: [id number] Admission: 02/07/19 ������������������ Attend Phys: Aljeo Stephenson MD, Discharge: 02/07/19 ������������������ Date of : 39 Report #: [id number] skin incisions and Dermabond glue was applied to all skin wounds. At the end of the procedure, all instruments, needle and sponge counts were correct. The patient tolerated the procedure without incident, was awakened in the operating room, transitioned to the recovery room in stable condition with no apparent complications. The gallbladder was opened on the back table showing significant findings of cholelithiasis and acute on chronic cholecystitis, but no other pathologic findings were identified. ��������������������������������������������� <ELECTRONICALLY SIGNED> ���������������������������������������� By: Alejo Stephenson MD, FACS ��������������������������������������������� 02/12/19 1717 [id number] [id number] Alejo Stephenson MD, FACS /nt
== END 2019-02-07 19:52 | disposition home or self-care (01) ==
LOC: OR 05:34 → TBA 05:34 → OR 09:56
PROVIDERS: Surgery
DX: K80.12 Calculus of gallbladder with acute and chronic cholecystitis without obstruction (principal); K82.8 Other specified diseases of gallbladder; J45.909 Unspecified asthma, uncomplicated; E78.5 Hyperlipidemia, unspecified; K21.9 Gastro-esophageal reflux disease without esophagitis; K50.90 Crohn's disease, unspecified, without complications; Z87.442 Personal history of urinary calculi; Z85.828 Personal history of other malignant neoplasm of skin; Z98.41 Cataract extraction status, right eye; Z98.42 Cataract extraction status, left eye; Z98.890 Other specified postprocedural states; Z87.891 Personal history of nicotine dependence; Z88.2 Allergy status to sulfonamides; Z88.8 Allergy status to other drugs, medicaments and biological substances; Z79.899 Other long term (current) drug therapy
CPT/HCPCS: 50010; 50101; 50249; 50411; 50555; 50558; 50900; 50962; 51489; 51975; 52265; 52266; 52287; 53307; 54022; 54118; 55245; 55317; 56462; 56525; 56526; 62110; 62900; 70005

== ENCOUNTER 2019-02-08 15:40 | Emergency (ER) | payer OTHER ==
[~2019-02-08] VITALS: Ht 177.8 cm; Wt 83.9 kg
[~2019-02-08 15:40] MED LIST changes: +NORCO 5-325 TA1 EACH PO; +SENOKOT-S TABL1 EACH PO
[2019-02-08 16:56] LABS: URINE BILIRUBIN NEGATIVE (Negative); URINE BLOOD NEGATIVE (Negative); URINE CLARITY CLEAR; URINE COLOR YELLOW; URINE GLUCOSE-RANDOM* NEGATIVE (Negative); URINE KETONES NEGATIVE (Negative); URINE LEUKOCYTES-REFLEX NEGATIVE (Negative); URINE NITRITE-REFLEX NEGATIVE (Negative); URINE PROTEIN (DIPSTICK) NEGATIVE (Negative); URINE SPECIFIC GRAVITY 1.015 (1.005-1.035); URINE UROBILINOGEN 0.2 E.U./dl (0.2-1.0)
[2019-02-08 17:41] VITALS: BP 128/68
== END 2019-02-08 17:42 | disposition home or self-care (01) ==
LOC: ER 15:40
PROVIDERS: Emergency Medicine
DX: R33.9 Retention of urine, unspecified (principal); K21.9 Gastro-esophageal reflux disease without esophagitis; I10 Essential (primary) hypertension; E78.5 Hyperlipidemia, unspecified; J45.909 Unspecified asthma, uncomplicated; Z87.891 Personal history of nicotine dependence; Z88.2 Allergy status to sulfonamides; Z88.8 Allergy status to other drugs, medicaments and biological substances

== ENCOUNTER 2019-02-10 10:50 | Inpatient (IN) | payer OTHER ==
[~2019-02-10] VITALS: Ht 175.3 cm; Wt 86.0 kg
[2019-02-10 11:03] VITALS: BP 132/68
[2019-02-10 12:01] LABS: ABSOLUTE NEUTROPHILS 11.1 thou/uL (1.4-8.2); BASOPHILS 0.3 % (0.0-2.0); EOSINOPHILS 0.8 % (0.0-3.0); HEMATOCRIT 45.7 % (42.0-52.0); HEMOGLOBIN 15.3 gm/dL (14.0-18.0); LYMPHOCYTES 4.5 % (24.0-44.0); MCH 28.4 pg (26.0-34.0); MCHC 33.6 g/dL (28.0-37.0); MCV 84.8 fL (80.0-100.0); PLATELET COUNT 209 thou/uL (150-400); POLYS 87.4 % (36.0-66.0); RBC 5.39 mil/uL (4.50-6.00); RDW 14.2 % (10.5-14.5); WBC 12.7 thou/uL (4.0-11.0)
[2019-02-10 12:02] LABS: CALCIUM 9.4 mg/dL (8.5-10.1); CREATININE 1.2 mg/dL (0.7-1.3); POTASSIUM 4.6 mmol/L (3.5-5.1)
[2019-02-10 12:08] LABS: ALBUMIN 3.2 g/dL (3.4-5.0); TOTAL PROTEIN 7.5 g/dL (6.4-8.2)
[2019-02-10 12:09] LABS: URINE BLOOD 3+ (Negative); URINE CLARITY CLEAR; URINE COLOR YELLOW; URINE GLUCOSE-RANDOM* NEGATIVE (Negative); URINE KETONES TRACE (Negative); URINE LEUKOCYTES-REFLEX NEGATIVE (Negative); URINE NITRITE-REFLEX NEGATIVE (Negative); URINE PROTEIN (DIPSTICK) 1+ (Negative); URINE SPECIFIC GRAVITY >= 1.030 (1.005-1.035)
[2019-02-10 12:10] LABS: ICTOTEST (BILI CONFIRMATORY) Negative (Negative); URINE BILIRUBIN NEGATIVE (Negative)
[2019-02-10 12:18] LABS: CASTS None Seen /LPF (None Seen); SQUAMOUS 0-3 Few /LPF (0-3)
[2019-02-10 12:19] LABS: BACTERIA-REFLEX 1-9 Few /HPF (None Seen); CRYSTALS None Seen /LPF (None Seen); MUCUS 0-3 Light strn/LPF (None Seen); URINE RBC 3-10 Few /HPF (0-2); URINE WBC-REFLEX 0-5 Rare /HPF (0-5)
[2019-02-10 18:42] VITALS: BP 158/79
[2019-02-10 19:04] VITALS: BP 121/64
[2019-02-10 19:58] VITALS: BP 122/65
--- NOTE | 2019-02-10 23:44 | NUR ---
Pt arrived on unit at 1930 via stretcher accompanied by staff/spouse.Admitted w/SBO. A/OX4,oriented to room,call light and made comfortable.VSS,c/o back pain especially with movement but denies need for pain meds at this time. Denies N/V,emesis basin provided by the bedside. Pt has a coburn w/leg bag,switched to a night bag. Urine is clear and yellow in color. Abdomen distended and firm.Pt is up w/SBA with weakness reported. Resting quietly at this time with no distress noted. IVF infusing via RAC without problems noted. Will continue to monitor pt.
[2019-02-11 05:02] VITALS: BP 118/60
[2019-02-11 06:00] LABS: HEMATOCRIT 39.5 % (42.0-52.0); HEMOGLOBIN 13.4 gm/dL (14.0-18.0); MCH 28.9 pg (26.0-34.0); MCHC 33.9 g/dL (28.0-37.0); MCV 85.4 fL (80.0-100.0); RBC 4.63 mil/uL (4.50-6.00); RDW 13.8 % (10.5-14.5); WBC 7.7 thou/uL (4.0-11.0)
[2019-02-11 06:09] LABS: CALCIUM 8.1 mg/dL (8.5-10.1); CREATININE 1.2 mg/dL (0.7-1.3); POTASSIUM 4.1 mmol/L (3.5-5.1)
--- NOTE | 2019-02-11 14:21 | NUR ---
ASSUMED CARE AT 0700, SHIFT ASSESSMENT DONE, MEDS GIVEN, VSS. NPO SINCE LAST NIGHT. ON IV FLUUDS. AC Q6H. ORDER RECEIVED FOR A SUPPOSITORY, ADMINISTERED. HAD A VERY SMALL BM, MOSLTY GAS AND SOME BLOOD. REMAINS NPO. WILL CONTINUE TO ASSESS AND ASSIST WITH ADLs NEEDED.
--- NOTE | 2019-02-11 15:51 | NUR ---
INITIAL ASSESSMENT: Pt evaluated for d/c planning needs. Reviewed chart and spoke with nurse, pt and spouse. Pt is alert and oriented. Pt lives in house with spouse and was independent with ADL's prior to admission to the hospital. 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 Pt uses no DME and has not had home health in the past. Pt plans on returning home on d/c from hospital. Will remain available to assist as needed.
[2019-02-11 16:00] VITALS: BP 121/55
[2019-02-11 20:17] VITALS: BP 121/55
--- NOTE | 2019-02-12 00:41 | NUR ---
PT RESTING, CONTINUE TO REFUSE PAIN MEDICINE, IN BED WATCHING TV, DOSING ON AND OFF, DUMONT CATH PATENT, LAP SITES WELL APPROXIMATED, ON ROOM AIR, USING CALL LIGHT APPROPRIATELY, ABLE TO TURN/REPOSITION SELF, SCDS TO BLE, NO BM PASSED THIS SHIFT, NO SOB NOTED, MONITORED.
[2019-02-12 04:34] VITALS: BP 106/55
[2019-02-12 08:08] VITALS: BP 121/55
[2019-02-12 17:18] VITALS: BP 124/62
[2019-02-12 20:01] VITALS: BP 138/62
--- NOTE | 2019-02-12 20:01 | NUR ---
PT A&OX4, IV INTACT IN R AC INFUSING FLUIDS W/O COMPS, AMBULATES WITH STAND BY ASSIST. DUMONT TO DD BRIANDA COLOR URINE. PT HAD A LARGE BM. WILL CONT POC.
--- NOTE | 2019-02-13 03:50 | NUR ---
PATIENT ALERT AND ORINTED X4. UP WITH SBA. STATES PAIN IS NOT TO BAD. DUMONT PATENT. HAS 4 SM INCISIONS ON ABD, THEY ARE INTACT WITH DERMABOND. SLE[T LISST THIS SHIFT.
[2019-02-13 04:48] VITALS: BP 138/60
[2019-02-13 08:21] VITALS: BP 127/61
[2019-02-13 16:33] VITALS: BP 126/62
--- NOTE | 2019-02-13 17:02 | NUR ---
ASSUMED CARE OF PT AT 0700. ASSESSMENT CHARTED. A&O,X4. C/O MINIMAL ABD PAIN, REFUSED PAIN MEDS. REQUESTING TO GO HOME, PHYSICIAN NOTIFIED. PHYSICIAN ORDERED DAILY FLOMAX TO BEGIN TODAY AND TO REMOVE DUMONT CATHETER TOMORROW. UP TO WALK IN HALLWAYS WITH TODAY. NO OTHER CHANGE IN STATUS. WILL CONTINUE TO MONITOR.
[2019-02-13 19:58] VITALS: BP 1423/56
[2019-02-14 05:22] VITALS: BP 119/61
[2019-02-14 07:09] VITALS: BP 129/61
--- NOTE | 2019-02-14 10:12 | NUR ---
P.T. EVALUATION DEFERRED PER PT REPORT OF NO DIFFICULTY WITH MOBILITY OR NEED FOR THERAPEUTIC INTERVENTIONS AT THIS TIME. PT'S IN AGREEMENT AND STATES PT HAS BEEN UP IN ROOM AND AMBULATING AROUND THE NURSING UNIT SEVERAL TIMES YESTERDAY AND THIS A.M. WITHOUT DIFFICULTY. PT HOPING TO D/C TO HOME TODAY. D/C SUMMARY IN CHART. RN NOTIFIED OF PT REFUSAL AND ABILITY TO RE-CONTACT P.T. IF PT EXHIBITS A CHANGE IN MOBILITY STATUS PRIOR TO D/C.
[2019-02-14 10:47] VITALS: BP 129/61
--- NOTE | 2019-02-14 13:14 | NUR ---
ASSUMED CARE OF PT AT 0700. ASSESSMENT CHARTED. A&O,X4. DENIES PAIN MEDS. NEW DISCHARGE ORDERS. PT TO D/C WITH JULIA, EDUCATION GIVEN TO PT AND SPOUSE AT BEDSIDE. IV REMOVED, NO ACTIVE BLEEDING. PT DRESSED IN PERSONAL CLOTHES. BELONGINGS GATHERED. D/C INFORMATION DISCUSSED WITH PT AT BEDSIDE. NO NEW SCRIPTS GIVEN. STATES NO QUESTIONS OR CONCERNS. PT LEFT IN STABLE CONDITION VIA WHEELCHAIR TRANSPORT AT 13:15.
== END 2019-02-14 13:24 | disposition home or self-care (01) | DRG 389 ==
LOC: ER 10:50 → 4E 14:19 → EROBS 14:19 → 4E 19:05 → ENTRNSPT 02-14 13:07 → EDTRNSPTSTS 02-14 13:09 → 4E 02-14 13:24
PROVIDERS: Physician Assistant; ADMIT Internal Medicine
DX: K56.609 Unspecified intestinal obstruction, unspecified as to partial versus complete obstruction (principal); E87.1 Hypo-osmolality and hyponatremia; K80.11 Calculus of gallbladder with chronic cholecystitis with obstruction; K50.90 Crohn's disease, unspecified, without complications; E78.5 Hyperlipidemia, unspecified; J45.909 Unspecified asthma, uncomplicated; I10 Essential (primary) hypertension; R33.9 Retention of urine, unspecified; D72.829 Elevated white blood cell count, unspecified; K21.9 Gastro-esophageal reflux disease without esophagitis; Z98.42 Cataract extraction status, left eye; Z98.41 Cataract extraction status, right eye; Z88.2 Allergy status to sulfonamides; Z87.442 Personal history of urinary calculi; Z88.8 Allergy status to other drugs, medicaments and biological substances; Z87.891 Personal history of nicotine dependence; Z79.82 Long term (current) use of aspirin; Z79.899 Other long term (current) drug therapy; Z86.010 Personal history of colon polyps
CPT/HCPCS: 10084; 10183

== ENCOUNTER 2020-07-12 07:49 | Emergency (ER) | payer OTHER ==
[~2020-07-12] VITALS: Ht 177.8 cm; Wt 86.2 kg
[2020-07-12 07:50] VITALS: BP 127/56
[2020-07-12] MEDS ORDERED: VALACYCLOVIR1000 MG PO (08:31)
== END 2020-07-12 09:00 | disposition home or self-care (01) ==
LOC: ER 07:49
DX: B02.9 Zoster without complications (principal); I10 Essential (primary) hypertension; J45.909 Unspecified asthma, uncomplicated; E78.5 Hyperlipidemia, unspecified; K21.9 Gastro-esophageal reflux disease without esophagitis; Z79.82 Long term (current) use of aspirin; Z79.899 Other long term (current) drug therapy; Z87.891 Personal history of nicotine dependence; Z88.2 Allergy status to sulfonamides; Z88.8 Allergy status to other drugs, medicaments and biological substances